=== PATIENT | female | born 1980 | race Caucasian/White ===

== ENCOUNTER 2022-02-02 15:32 | Outpatient (REF) | payer OTHER, SELFPAY ==
[2022-02-02 16:27] LABS: COVID-19 Test Negative (Negative); IDNOW Serial# 9DD0AD1C
== END 2022-02-02 15:33 | disposition home or self-care (01) ==
LOC: HO.LAB 15:32
PROVIDERS: Visit Provider Internal Medicine
DX: Z20.822 Contact with and (suspected) exposure to COVID-19 (principal)
CPT/HCPCS: 87635; C9803